=== PATIENT | male | born 1965 | race Hispanic/Latino ===

== ENCOUNTER 2018-01-01 21:55 | Emergency (ER) | payer SELFPAY ==
[~2018-01-01] VITALS: Ht 162.6 cm; Wt 77.1 kg
[2018-01-02] MEDS ORDERED: TETRACAINE HCL 0.5% OPTH SOLN 4 ML BTL OP ONE (00:45)
[2018-01-02] MEDS ORDERED: NIFEDIPINE 10 MG CAP PO ONE (00:45)
[2018-01-02] MEDS ORDERED: EYE IRRIGATION (OPTH) 120 ML BTL OP ONE (00:45)
[2018-01-02] MEDS ORDERED: FLUORESCEIN SOD(OPTH) 1 MG STRP OP ONE (00:45)
[2018-01-02] MEDS ORDERED: TOBRAMYCIN 0.3% OPTH OINT 3.5 GM TUBE OS ONE (02:00)
== END 2018-01-02 02:19 | disposition home or self-care (01) ==
LOC: ER 21:55
DX: T15.02XA Foreign body in cornea, left eye, initial encounter (principal); I10 Essential (primary) hypertension
CPT/HCPCS: 99283